=== PATIENT | male | born 1945 | race Caucasian/White ===

== ENCOUNTER 2020-06-11 07:48 | Emergency (ER) | payer MEDICARE, SELFPAY ==
[2020-06-11 07:52] VITALS: BP 151/73; PULSE 66; RESP 17; TEMP 36.7; O2SAT 96
--- NOTE | 2020-06-11 08:12 | ED.LOWEXIN ---
HPI - Extremity Injury (Lower) General Chief Complaint: Extremity Injury, Lower Stated Complaint: L leg pain Time Seen by Provider: 06/11/20 07:56 Source: patient Mode of arrival: ambulatory Limitations: no limitations History of Present Illness HPI Narrative: This patient is a 74 year old male who presents for evaluation of sciatica. PAtient states he developed pain to left buttock yesterday while walking in the store. He reports constant 2/10 dull ache to left buttock that intermittently intensifies . He reports this pain radiates down is left to his foot. HE reports tingling to his feet. He reports history of sciatica in the past that was similar and he was sent to physical therapy at that time. He was taking aspirin for his pain and he last took medication last night at 8 pm. Related Data Home Medications Medication Instructions Recorded Confirmed alprazolam 06/11/20 amlodipine 06/11/20 carvedilol 06/11/20 cyclobenzaprine mg 06/11/20 doxycycline hyclate 06/11/20 escitalopram oxalate mg 06/11/20 hydroxyzine HCl 06/11/20 indapamide mg 06/11/20 losartan 06/11/20 omeprazole 06/11/20 simvastatin mg 06/11/20 Allergies Allergy/AdvReac Type Severity Reaction Status Date / Time iodine Allergy Unknown Unknown Verified 06/11/20 07:56 Contrast Media Allergy Unknown Unknown Uncoded 06/11/20 07:56 Review of Systems Review of Systems: All systems reviewed & are unremarkable except as noted in HPI and below Constitutional: Constitutional: Denies chills and Denies fever(s) [facility] Past Medical History Medical History (Updated 06/11/20 @ 12:38 by Miya Stein MD) Afib CVA (cerebral vascular accident) Hypertension Surgical History Surgical History (Updated 06/11/20 @ 08:17 by Miya Stein MD) Hx of tonsillectomy Social History Social History (Updated 06/11/20 @ 08:17 by Miya Stein MD) Smoking status: Never smoker Gender identity (if verbalized by the patient): Male Exam Const: General: alert Orientation/consciousness: patient oriented x3 HENMT: Head: normocephalic and atraumatic Face and sinus: face symmetric Mouth: Yes oropharynx normal Eyes: Pupils: Equal, round and reactive pupils present EOM: EOMs intact bilaterally Resp: Effort & Inspection: normal respiratory effort, no retractions and no use of accessory muscles Auscultation: clear to auscultation bilaterally Cardio: Rate: regular rate Rhythm: regular rhythm Heart sounds: no murmurs GI: GI Palp: Yes Soft to palpation, No Tenderness to palpation present (GI), No Guarding due to palpation present (GI) and No Rigid due to palpation Back/Spine/Pelvis: Back: no CVA tenderness Pelvis: buttock tenderness on the left and sciatic notch tenderness on the left Skin: General skin exam: normal color Rashes: no rashes Neuro: General: patient oriented x3 and moves all extremities Extrem: General: no clubbing, cyanosis or edema and no pedal edema Other: strong bilateral pedal pulses palpable Course Reevaluation(s) Reevaluation #1: PAtient states he feels much better. He will follow up with PCP for further treatment. Date: 06/11/20 Time: 12:37 Vital Signs Vital signs: Vital Signs Temperature 98.0 F 06/11/20 07:52 Pulse Rate 66 06/11/20 07:52 Respiratory Rate 17 06/11/20 07:52 Blood Pressure 151/73 H 06/11/20 07:52 Pulse Oximetry 96 06/11/20 07:52 Temperature 98.0 F 06/11/20 07:52 Pulse Rate 86 06/11/20 12:56 Respiratory Rate 18 06/11/20 12:56 Blood Pressure 141/72 H 06/11/20 11:12 Pulse Oximetry 98 06/11/20 12:56 MDM - Extremity Injury (Lower) Lab Data Labs: Lab Results 06/11/20 Range/Units 08:34 Urine Color Yellow (Yellow) Urine Appearance Clear (Clear) Urine pH 5.0 (5.0-9.0) Ur Specific [place] 1.020 (1.001-1.035) Urine Protein Negative (Negative) mg/dL Urine Glucose (UA) Negative (Negative) mg/dL Urine Ketones Negative
[2020-06-11] MEDS: KETOROLAC 30 MG/ML VIAL (*BKC) IV PUSH (08:15)
[2020-06-11] MEDS: ONDANSETRON INJ 4 MG/2 ML VIAL IV PUSH (08:16)
[2020-06-11] MEDS: diazePAM 5 MG TABLET PO (08:16)
[2020-06-11] MEDS: methylPREDNISolone SOD SUCC 125 MG VIAL IV PUSH (08:16)
[2020-06-11 08:49] LABS: Add Urine Microscopic? NO; Appearance Urine Clear (Clear); Bilirubin Urine Negative (Negative); Blood Urine Negative (Negative); Color Urine Yellow (Yellow); Glucose Urine UA Negative (Negative); Ketones Urine Negative (Negative); Leukocyte Esterase Ur Negative LEU/UL (Negative); Nitrate Urine Negative (Negative); Protein Urine Negative (Negative); Urobilinogen Urine Negative mg/dL (<2.0)
[2020-06-11 11:12] VITALS: BP 141/72; PULSE 63; RESP 18; O2SAT 95
[2020-06-11 12:56] VITALS: PULSE 86; RESP 18; O2SAT 98
== END 2020-06-11 12:56 | disposition home or self-care (01) ==
PROVIDERS: Emergency Provider General Practice; PCP Internal Medicine
DX: M54.32 Sciatica, left side (principal); I48.91 Unspecified atrial fibrillation; Z86.73 Personal history of transient ischemic attack (TIA), and cerebral infarction without residual deficits; I10 Essential (primary) hypertension
CPT/HCPCS: 81003; 96374; 96375; 96376; 99284; A9270; J1170; J1885; J2405; J2930

== ENCOUNTER 2022-04-02 08:23 | Emergency (ER) | payer MEDICARE, SELFPAY ==
[2022-04-02 08:36] VITALS: BP 115/60; PULSE 66; RESP 16; TEMP 38.3; O2SAT 97
--- NOTE | 2022-04-02 08:57 | ED.URI ---
HPI - URI/Sore Throat General Chief Complaint: Upper Respiratory Infection Stated Complaint: Cough,Sneezing Time Seen by Provider: 04/02/22 08:57 Source: patient Mode of arrival: ambulatory Limitations: no limitations History of Present Illness HPI Narrative: 76-year-old male presents with complaint of nasal congestion, fatigue, body aches, cough, sneezing for 2 to 3 days. Reports taking [id number] DayQuil NyQuil cold and flu with little relief. States that he gets the same illness every spring and gets an antibiotic for him. He denies chest pain and shortness of breath. Reports today he woke up with redness and yellow drainage to left eye. Has cataract surgery coming up and does not want to be sick for it. Patient is afebrile. Patient took 2 home COVID test that were negative. All systems reviewed and negative except as noted above. Related Data Home Medications Medication Instructions Recorded Confirmed amlodipine 10 mg PO DAILY 06/11/20 04/02/22 carvedilol 25 mg PO DIRECTED 06/11/20 04/02/22 escitalopram oxalate 10 mg PO DAILY 06/11/20 04/02/22 indapamide 2.5 mg PO DAILY 06/11/20 04/02/22 losartan 100 mg PO DAILY 06/11/20 04/02/22 omeprazole 20 mg PO DAILY 06/11/20 04/02/22 simvastatin 40 mg PO DAILY 04/02/22 04/02/22 Allergies Allergy/AdvReac Type Severity Reaction Status Date / Time iodine Allergy Intermediate Hives Verified 04/02/22 08:44 Contrast Media Allergy Intermediate Hives Uncoded 04/02/22 08:44 Review of Systems Review of Systems: CONSTITUTIONAL: Denies fever, chills, or sweats. Reports fatigue EYES: Denies visual changes, redness, or discharge. ENT: Reports rhinorrhea, congestion. Denies sore throat and otalgia. CARDIOVASCULAR: Denies chest pain, palpitations, or edema. RESPIRATORY: Denies cough or dyspnea. GASTROINTESTINAL: Denies abdominal pain, nausea, vomiting, or diarrhea. GENITOURINARY: Denies dysuria or hematuria. SKIN: Denies rash or itching. MUSCULOSKELETAL: Denies back pain, joint pain. Reports myalgia. NEUROLOGIC: Denies headache, numbness, or weakness. PSYCHIATRIC: Denies anxiety or depression. All other systems reviewed are negative, except as documented in HPI. [facility] Past Medical History Medical History (Updated 04/02/22 @ 09:06 by Paulina Carver NP) Afib CVA (cerebral vascular accident) Hypertension Surgical History Surgical History (Updated 06/11/20 @ 08:17 by Miya Stein MD) Hx of tonsillectomy Social History Social History (Updated 06/11/20 @ 08:17 by Miya Stein MD) Smoking status: Never smoker Gender identity (if verbalized by the patient): Male Comments At time of signature, agree with nursing past medical, surgical, social and family history. There is no relevant family history pertinent to the presenting complaint. Exam Narrative: GENERAL: This is a well-nourished, well-developed patient, in no apparent distress. HEAD: normocephalic, atraumatic. EYES: PERRL. Sclera clear/white. Vision is grossly intact. EARS: External ears normal, auditory canals clear and without drainage, TMs normal without perforation. Hearing grossly intact. NOSE: External nose normal with clear nasal drainage, erythema to both nares. THROAT: Mucous membranes moist, erythema to posterior pharynx with clear postnasal drainage. NECK: Neck supple, non-tender without lymphadenopathy, masses or thyromegaly. CARDIOVASCULAR: Regular rate and rhythm without murmurs, gallops, or rubs. RESPIRATORY: Decreased lung sounds at bases but otherwise normal. Breath sounds equal bilaterally. No wheezes, rales, or rhonchi. SKIN: warm, Dry, intact with no suspicious lesions or rash, good texture and turgor. NEURO: awake, alert, and oriented to person, place and time. There were no obvious focal neurologic abnormalities. EXTREMITIES: Normal range of motion to all extremities. Course Course Level of Care: Express Care Visit Vital Signs Vital signs: Vital Signs Temp
== END 2022-04-02 09:10 | disposition home or self-care (01) ==
PROVIDERS: Emergency Provider Nurse Practitioner Family; PCP Internal Medicine
DX: J06.9 Acute upper respiratory infection, unspecified (principal); H10.32 Unspecified acute conjunctivitis, left eye; I48.91 Unspecified atrial fibrillation; I10 Essential (primary) hypertension; Z86.73 Personal history of transient ischemic attack (TIA), and cerebral infarction without residual deficits
CPT/HCPCS: 99213; G0463

== ENCOUNTER 2022-04-22 09:13 | Emergency (ER) | payer MEDICARE, SELFPAY ==
--- NOTE | ~2022-04-22 | XR_ITS ---
XR foot LT min 3V DATE: 04/22/2022 10:13 INDICATION: Left plantar foot pain for 2 days TECHNIQUE: 4 views COMPARISON: None FINDINGS: Mild plantar and more prominent posterior calcaneal enthesopathy. No associated erosive yusuf nge or periostitis. There is severe osteoarthritic change at the first metatarsophalangeal joint is osteoarthritis at the interphalangeal joint of the first digit. No fracture or dislocation, periosteal reaction or bone destruction. Os tibiale externum, normal variant. 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
[2022-04-22 09:25] VITALS: BP 119/73; PULSE 65; RESP 16; TEMP 37.4; O2SAT 99
--- NOTE | 2022-04-22 09:26 | ED.EXTPRO ---
HPI - Extremity Problem General Chief complaint: Extremity Injury, Lower Stated complaint: Bottom of left Foot Time Seen by Provider: 04/22/22 09:53 Source: patient and RN notes reviewed Mode of arrival: ambulatory Limitations: no limitations History of Present Illness HPI Narrative: 79-tumj-kxh-year-old male presents with concern for left foot pain. He denies any injury. He reports foot pain started after walking in the [place]. He reports he woke up in the middle the night with pain, and the pain progressed. Reports he has been using a cane due to the pain. Reports pain is 4/10 at rest and 8/10 with weightbearing and range of motion. Reports has been taking aspirin ibuprofen without relief. He denies open skin, lacerations, abrasions, bruising, swelling, redness, warmth MD Complaint: extremity pain Related Data Home Medications Medication Instructions Recorded Confirmed amlodipine 10 mg tablet 10 mg PO DAILY 06/11/20 04/02/22 carvedilol 25 mg tablet 25 mg PO DIRECTED 06/11/20 04/02/22 escitalopram oxalate 10 mg tablet 10 mg PO DAILY 06/11/20 04/02/22 indapamide 2.5 mg tablet 2.5 mg PO DAILY 06/11/20 04/02/22 losartan 100 mg tablet 100 mg PO DAILY 06/11/20 04/02/22 omeprazole 20 mg capsule,delayed 20 mg PO DAILY 06/11/20 04/02/22 release aspirin 04/22/22 04/22/22 rosuvastatin 40 mg tablet tablet 04/22/22 Allergies Allergy/AdvReac Type Severity Reaction Status Date / Time iodine Allergy Intermediate Hives Verified 04/02/22 08:44 Contrast Media Allergy Intermediate Hives Uncoded 04/02/22 08:44 Review of Systems Review of Systems: CONSTITUTIONAL: Denies malaise, chills, sweats, or fever. CARDIOVASCULAR: Denies chest pain, palpitations, or edema. RESPIRATORY: Denies cough or dyspnea. SKIN: Denies rash or itching, bruising, redness, swelling. MUSCULOSKELETAL: Reports left foot pain NEUROLOGIC: Denies numbness, weakness All systems reviewed & are unremarkable except as noted in HPI and below PMFSH Past Medical History Medical History (Updated 04/22/22 @ 10:26 by Marilyn Ferrer NP) Afib CVA (cerebral vascular accident) Hypertension Surgical History Surgical History (Updated 06/11/20 @ 08:17 by Miya Stein MD) Hx of tonsillectomy Social History Social History (Updated 06/11/20 @ 08:17 by Miya Stein MD) Smoking status: Never smoker Gender identity (if verbalized by the patient): Male Comments At time of signature, agree with nursing past medical, surgical, social and family history. There is no relevant family history pertinent to the presenting complaint Exam Narrative: GENERAL: Well-appearing, well-nourished, and in no acute distress. HEAD: Normocephalic, atraumatic. EYES: PERRLA, conjunctivae clear NECK: Supple. CHEST: Speaks in full sentences. No respiratory distress. HEART: Regular rate and rhythm. Normal and equal peripheral pulses. EXTREMITIES: Left foot, digits have normal strength and sensation, normal range of motion. No edema or ecchymosis. 5/5 strength with ankle and digit flexion and extension. Normal sensation with sensitivity to light touch and pain. Pedal carpal tenderness. No open wounds, no skin tenting, no devitalized tissue or atrophy, no trophic changes, no obvious deformity, alignment normal, nearby joints and structures intact. Distal pulses palpable and equal bilaterally, skin warm, dry, pink. Capillary refill less than 3 seconds. SKIN: Warm, dry, no rash. NEURO: Alert and oriented x3. PSYCH: Normal mood and affect Course Course Emergency Course: Patient is aware of diagnosis, understands and agrees to treatment plan. Anticipatory guidance given. Patient agrees to follow-up as directed and is aware of reasons to seek care at the emergency department. Portions of this record may have been created with voice recognition software Level of Care: Express Care Visit Vital Signs Vital signs: Vital Signs Temperature 99.3 F 04/22/22 09:25 Pulse Rat
== END 2022-04-22 10:52 | disposition home or self-care (01) ==
PROVIDERS: Emergency Provider Nurse Practitioner; PCP Internal Medicine
DX: M19.072 Primary osteoarthritis, left ankle and foot (principal); I10 Essential (primary) hypertension; I48.91 Unspecified atrial fibrillation; Z86.73 Personal history of transient ischemic attack (TIA), and cerebral infarction without residual deficits; Z79.82 Long term (current) use of aspirin
CPT/HCPCS: 73630; 99213; G0463

== ENCOUNTER 2022-05-13 08:05 | Emergency (ER) | payer MEDICARE, SELFPAY ==
[2022-05-13 08:19] VITALS: BP 138/72; PULSE 68; RESP 20; TEMP 37.1; O2SAT 96
[2022-05-13 08:29] VITALS: BP 138/72; PULSE 68; RESP 20; TEMP 37.1; O2SAT 96
--- NOTE | 2022-05-13 08:36 | ED.URI ---
HPI - URI/Sore Throat General Chief Complaint: Upper Respiratory Infection Stated Complaint: Covid Positive Time Seen by Provider: 05/13/22 08:25 Source: patient Mode of arrival: ambulatory Limitations: no limitations History of Present Illness HPI Narrative: 76 yo M presents with c/o cough, congestion, feeling warm, fatigued since last night. Reports he took covid test last night and today and both were positive. States his had covid last week. Pt is covid vaccinated. here to have antiviral prescribed. Ambulatory with steady gait. Denies CP and SOB. All systems reviewed and negative except as noted above. Related Data Home Medications Medication Instructions Recorded Confirmed amlodipine 10 mg tablet 10 mg PO DAILY 06/11/20 05/13/22 carvedilol 25 mg tablet 25 mg PO DIRECTED 06/11/20 05/13/22 escitalopram oxalate 10 mg tablet 10 mg PO DAILY 06/11/20 05/13/22 indapamide 2.5 mg tablet 2.5 mg PO DAILY 06/11/20 05/13/22 losartan 100 mg tablet 100 mg PO DAILY 06/11/20 05/13/22 omeprazole 20 mg capsule,delayed 20 mg PO DAILY 06/11/20 05/13/22 release aspirin 81 mg PO DAILY 04/22/22 05/13/22 rosuvastatin 40 mg tablet 40 mg PO DAILY 04/22/22 05/13/22 gabapentin 300 mg capsule 300 cap PO DAILY 05/13/22 05/13/22 ketorolac 0.5 % eye drops 1 drp ophthalmic (eye) DIRECTED 05/13/22 05/13/22 Allergies Allergy/AdvReac Type Severity Reaction Status Date / Time iodine Allergy Intermediate Hives Verified 05/13/22 08:21 Contrast Media Allergy Intermediate Hives Uncoded 05/13/22 08:21 Review of Systems Review of Systems: CONSTITUTIONAL: Denies fever, chills, or sweats. Reports fatigue. EYES: Denies visual changes, redness, or discharge. ENT: Reports rhinorrhea, congestion. Denies sore throat, or otalgia. CARDIOVASCULAR: Reports chest pain. Denies palpitations, or edema. RESPIRATORY: Denies cough or dyspnea. GASTROINTESTINAL: Denies abdominal pain, nausea, vomiting, or diarrhea. GENITOURINARY: Denies dysuria or hematuria. SKIN: Denies rash or itching. MUSCULOSKELETAL: Denies back pain, joint pain, or myalgia. NEUROLOGIC: Denies headache, numbness, or weakness. PSYCHIATRIC: Denies anxiety or depression. All other systems reviewed are negative, except as documented in HPI. [facility] Past Medical History Medical History (Updated 05/13/22 @ 08:31 by Paulina Carver NP) Afib CVA (cerebral vascular accident) Hypertension Surgical History Surgical History (Updated 06/11/20 @ 08:17 by Miya Stein MD) Hx of tonsillectomy Social History Social History (Updated 06/11/20 @ 08:17 by Miya Stein MD) Smoking status: Never smoker Gender identity (if verbalized by the patient): Male Comments At time of signature, agree with nursing past medical, surgical, social and family history. There is no relevant family history pertinent to the presenting complaint. Exam Narrative: GENERAL: This is a well-nourished, well-developed patient, in no apparent distress. HEAD: normocephalic, atraumatic. EYES: PERRL. Sclera clear/white. Vision is grossly intact. EARS: External ears normal, auditory canals clear and without drainage, TMs normal without perforation. Hearing grossly intact. NOSE: External nose normal with clear nasal drainage. No erythema or swelling to nares. THROAT: Mucous membranes moist, no erythema to posterior pharynx. Clear postnasal drainage noted. No exudates or tonsillar enlargement. NECK: Neck supple, non-tender without lymphadenopathy, masses or thyromegaly. CARDIOVASCULAR: Regular rate and rhythm without murmurs, gallops, or rubs. RESPIRATORY: Clear to auscultation. Breath sounds equal bilaterally. No wheezes, rales, or rhonchi. SKIN: warm, Dry, intact with no suspicious lesions or rash, good texture and turgor. NEURO: awake, alert, and oriented to person, place and time. There were no obvious focal neurologic abnormalities. EXTREMITIES: No joint tenderness, effusion, or edema noted. Co
== END 2022-05-13 08:32 | disposition home or self-care (01) ==
PROVIDERS: Emergency Provider Nurse Practitioner Family; PCP Internal Medicine
DX: U07.1 COVID-19 (principal); I48.91 Unspecified atrial fibrillation; Z86.73 Personal history of transient ischemic attack (TIA), and cerebral infarction without residual deficits; I10 Essential (primary) hypertension; Z79.82 Long term (current) use of aspirin
CPT/HCPCS: 99213; G0463

== ENCOUNTER 2023-03-05 10:42 | Emergency (ER) | payer MEDICARE, SELFPAY ==
[2023-03-05 10:51] VITALS: BP 117/62; PULSE 67; RESP 16; TEMP 37.1; O2SAT 96
--- NOTE | 2023-03-05 10:57 | ED.URI ---
HPI - URI/Sore Throat General Chief Complaint: Upper Respiratory Infection Stated Complaint: Cough/Headache/Sinus Source: patient and RN notes reviewed Mode of arrival: ambulatory Limitations: no limitations History of Present Illness HPI Narrative: 77-year-old male presented for complaint of productive cough for about 5 days. He also endorses sinus congestion and drainage, as well as chest congestion. The endorses the cough is productive, occasional wheezing, and coughing spells cause dizziness and difficulty sleeping. Tested Covid negative at home yesterday and the day before. Taking OTC meds for symptoms with some relief in the sinus congestion. Denies shortness of breath, nausea, vomiting, diarrhea, fevers or chills. MD elicited complaint: cough Related Data Home Medications Medication Instructions Recorded Confirmed amlodipine 10 mg tablet 10 mg PO DAILY 06/11/20 05/13/22 carvedilol 25 mg tablet 25 mg PO DIRECTED 06/11/20 05/13/22 escitalopram oxalate 10 mg tablet 10 mg PO DAILY 06/11/20 05/13/22 indapamide 2.5 mg tablet 2.5 mg PO DAILY 06/11/20 05/13/22 losartan 100 mg tablet 100 mg PO DAILY 06/11/20 05/13/22 omeprazole 20 mg capsule,delayed 20 mg PO DAILY 06/11/20 05/13/22 release aspirin 81 mg PO DAILY 04/22/22 05/13/22 gabapentin 300 mg capsule 300 cap PO DAILY 05/13/22 05/13/22 simvastatin 40 mg tablet mg 03/05/23 Allergies Allergy/AdvReac Type Severity Reaction Status Date / Time iodine Allergy Intermediate Hives Verified 03/05/23 10:50 Contrast Media Allergy Intermediate Hives Uncoded 03/05/23 10:50 Review of Systems Review of Systems: CONSTITUTIONAL: Denies malaise, chills, sweats, fever EYES: Denies visual changes, redness, or discharge ENT: Reports rhinorrhea, congestion, denies sinus pain, otalgia, sore throat CARDIOVASCULAR: Denies chest pain, palpitations, edema RESPIRATORY: Reports cough, post nasal drainage. Denies dyspnea GASTROINTESTINAL: Denies abdominal pain, nausea, vomiting, diarrhea SKIN: Denies rash or itching MUSCULOSKELETAL: Denies myalgia NEUROLOGIC: Denies headache PMFSH Past Medical History Medical History Afib CVA (cerebral vascular accident) Hypertension Surgical History Surgical History Hx of tonsillectomy Social History Social History Smoking status: Never smoker Gender identity (if verbalized by the patient): Male Exam Narrative: GENERAL: Mildly ill-appearing, nontoxic no acute distress. HEAD: Normocephalic EYES: PERRLA, conjunctivae clear ENT: Mucous membranes moist. TM pearly ballard with dull light reflex bilaterally; no tragal tenderness. Oropharynx erythematous without lesions or exudate, no drooling, no hoarseness, no trismus, uvula midline. No tripod positioning, muffled voice, soft palate or pharyngeal wall bulging NECK: Supple. No lymphadenopathy CHEST: Clear to auscultation, breath sounds equal. Moist nonproductive cough. Occasional audible wheezing. no respiratory distress, speaks in full sentences. HEART: Regular rate and rhythm. No murmur heard. SKIN: Warm, dry, no rash. NEURO: Alert and oriented x3. PSYCH: Normal mood and affect Course Course Emergency Course: Patient is aware of diagnosis, understands and agrees to treatment plan. Anticipatory guidance given. Patient agrees to follow-up as directed and is aware of reasons to seek care at the emergency department. Portions of this record may have been created with voice recognition software Level of Care: Express Care Visit Vital Signs Vital signs: Vital Signs Temperature 98.8 F 03/05/23 10:51 Pulse Rate 67 03/05/23 10:51 Respiratory Rate 16 03/05/23 10:51 Blood Pressure 117/62 03/05/23 10:51 Pulse Oximetry 96 03/05/23 10:51 Oxygen Delivery Room Air 03/05/23 10:51 Temperature 98.8 F
== END 2023-03-05 11:08 | disposition home or self-care (01) ==
PROVIDERS: Emergency Provider Nurse Practitioner Family; PCP Internal Medicine
DX: J40 Bronchitis, not specified as acute or chronic (principal); I48.91 Unspecified atrial fibrillation; I10 Essential (primary) hypertension; Z86.73 Personal history of transient ischemic attack (TIA), and cerebral infarction without residual deficits; Z79.82 Long term (current) use of aspirin
CPT/HCPCS: 99213; G0463

== ENCOUNTER 2023-12-27 08:17 | Emergency (ER) | payer MEDICARE, SELFPAY ==
--- NOTE | ~2023-12-27 | XR_ITS ---
EXAMINATION: XR foot RT min 3V DATE: 12/27/2023 08:54 INDICATION: Right foot swelling TECHNIQUE: Dorsoplantar, lateral, and 2 oblique views of the right foot were obtained. COMPARISON: None. FINDINGS: Bone alignment is normal. There is no fracture. 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 Moderate osteoarthritis is noted in multiple interphalangeal joints. Ther e is soft tissue swelling of the foot and distal leg. A plantar calcaneal enthesophyte is noted. IMPRESSION: 1. Soft tissue swelling without acute osseous abnormality. Reviewed, dictated and finalized at location F. OR UNDERWRITING ASSISTANT
--- NOTE | 2023-12-27 08:21 | ED.GENADULT ---
HPI - General Adult General Chief complaint: Extremity Problem,Nontraumatic Stated complaint: Right Foot Pain Time Seen by Provider: 12/27/23 08:21 78-year-old male patient [facility] with complaints right foot pain. Patient states the pain started Friday night. Patient states he was at [employer] on Friday and was on the treadmill and with ago stepped off and thinks that he might have stepped down from the treadmill wrong is slightly twisted his ankle but states really did not feel any pain at that time. Patient states that pain did not start until later on that evening and woke up with increased pain and swelling on Friday. Patient states the pain the swelling has gotten progressively worse throughout the week. Patient states he took some Helen aspirin for pain yesterday denies any other Tylenol ibuprofen for the pain at this time. Denies any numbness or tingling to the toes. Patient states that pain is increased to the point where he is having trouble walking on the right foot. Source: patient Mode of arrival: ambulatory Limitations: no limitations Related Data Home Medications Medication Instructions Recorded Confirmed amlodipine 10 mg tablet 10 mg PO DAILY 06/11/20 12/27/23 carvedilol 25 mg tablet 25 mg PO DIRECTED 06/11/20 12/27/23 escitalopram oxalate 10 mg tablet 10 mg PO DAILY 06/11/20 12/27/23 indapamide 2.5 mg tablet 2.5 mg PO DAILY 06/11/20 12/27/23 losartan 100 mg tablet 100 mg PO DAILY 06/11/20 12/27/23 omeprazole 20 mg capsule,delayed 20 mg PO DAILY 06/11/20 12/27/23 release aspirin 81 mg PO DAILY 04/22/22 12/27/23 gabapentin 300 mg capsule 300 cap PO DAILY 05/13/22 12/27/23 simvastatin 40 mg tablet 40 mg PO DAILY 03/05/23 12/27/23 Allergies Allergy/AdvReac Type Severity Reaction Status Date / Time iodine Allergy Intermediate Hives Verified 12/27/23 08:22 Contrast Media Allergy Intermediate Hives Uncoded 12/27/23 08:22 Review of Systems Review of Systems: CONSTITUTIONAL: Denies fever, chills, or sweats. EYES: Denies visual changes, redness, or discharge. ENT: Denies rhinorrhea, congestion, sore throat, or otalgia. CARDIOVASCULAR: Denies chest pain, palpitations, or edema. RESPIRATORY: Denies cough or dyspnea. GASTROINTESTINAL: Denies abdominal pain, nausea, vomiting, or diarrhea. GENITOURINARY: Denies dysuria or hematuria. SKIN: Denies rash or itching. MUSCULOSKELETAL: Denies back pain, joint pain, or myalgia. Positive right foot pain x4 days NEUROLOGIC: Denies headache, numbness, or weakness. PSYCHIATRIC: Denies anxiety or depression. PMFSH Past Medical History Medical History Afib CVA (cerebral vascular accident) Hypertension Surgical History Surgical History Hx of tonsillectomy Social History Social History Smoking status: Never smoker Gender identity (if verbalized by the patient): Male Comments At the time of my signature I agree with nursing past medical history, surgical, social, and family history. There is no relevant family history pertinent to the presenting complaint. Exam Narrative: GENERAL: Well-appearing, well-nourished, and in no acute distress. HEAD: Normocephalic, atraumatic. EYES: PERRLA and EOMI. ENT: Nares clear, no rhinorrhea or epistaxis. Mucous membranes moist. NECK: Supple. No lymphadenopathy CHEST: Clear to auscultation. No respiratory distress. HEART: Regular rate and rhythm. No murmur heard. Normal peripheral pulses. ABDOMEN: Soft, nontender, nondistended, normal active bowel sounds. EXTREMITIES: Patient able to bear weight and ambulate but has increased pain to the right foot. No surface trauma, no ecchymosis, mild erythema noted to the right foot compared to the left, no lesions, or ulcers or break in skin integrity. The R foot is without obvious a
[2023-12-27 08:29] VITALS: BP 133/71; PULSE 70; RESP 24; TEMP 37.1; O2SAT 98
== END 2023-12-27 09:50 | disposition home or self-care (01) ==
PROVIDERS: Emergency Provider Nurse Practitioner Family; PCP Internal Medicine
DX: S93.691A Other sprain of right foot, initial encounter (principal); X58.XXXA Exposure to other specified factors, initial encounter; I48.91 Unspecified atrial fibrillation; I10 Essential (primary) hypertension; Z86.73 Personal history of transient ischemic attack (TIA), and cerebral infarction without residual deficits
CPT/HCPCS: 73630; 99213; G0463

== ENCOUNTER 2024-01-12 01:41 | Emergency (ER) | payer MEDICARE, SELFPAY ==
--- NOTE | ~2024-01-12 | XR_ITS ---
AP view of the pelvis and lateral view of the left hip Clinical history: Pain Findings: No acute fracture or dislocation is seen. Osseous alignment is anatomic. The left hip joint is preserved. Soft tissues are unremarkable. Impression: No significant abnormality is seen. Reviewed, dictated and finalized at [facility]. STANT Impression: No significant abnormality is seen.
[2024-01-12 01:42] VITALS: BP 143/67; PULSE 61; RESP 20; TEMP 36.6; O2SAT 97
[2024-01-12] MEDS: CYCLOBENZAPRINE HCL 10 MG TABLET PO (03:45)
[2024-01-12] MEDS: HYDROcodone/acetaminophen (*CRX) 5-325 MG TABLET 1 TAB PO (03:45)
[2024-01-12 03:47] VITALS: BP 123/83; PULSE 72; RESP 15; O2SAT 96
--- NOTE | 2024-01-12 04:10 | ED.EXTPRO ---
HPI - Extremity Problem General Chief complaint: Extremity Problem,Nontraumatic Stated complaint: L hip pain, radiates down leg Time Seen by Provider: 01/12/24 02:54 History of Present Illness HPI Narrative: 78-year-old male presenting ED for evaluation of left hip pain. Patient had a recent injury to his right foot and had been using crutches and a walker over the last few weeks. Patient states the longer using the walker the worse his left-sided hip pain became. Patient describes pain that radiates from left buttock/left hip down to his knee. Patient denies any radiation the pain past the knee. Patient does have history of neuropathy but denies any worsening his numbness to his left foot. Related Data Home Medications Medication Instructions Recorded Confirmed amlodipine 10 mg tablet 10 mg PO DAILY 06/11/20 12/27/23 carvedilol 25 mg tablet 25 mg PO DIRECTED 06/11/20 12/27/23 escitalopram oxalate 10 mg tablet 10 mg PO DAILY 06/11/20 12/27/23 indapamide 2.5 mg tablet 2.5 mg PO DAILY 06/11/20 12/27/23 losartan 100 mg tablet 100 mg PO DAILY 06/11/20 12/27/23 omeprazole 20 mg capsule,delayed 20 mg PO DAILY 06/11/20 12/27/23 release aspirin 81 mg PO DAILY 04/22/22 12/27/23 gabapentin 300 mg capsule 300 cap PO DAILY 05/13/22 12/27/23 simvastatin 40 mg tablet 40 mg PO DAILY 03/05/23 12/27/23 Allergies Allergy/AdvReac Type Severity Reaction Status Date / Time iodine Allergy Intermediate Hives Verified 12/27/23 08:22 Contrast Media Allergy Intermediate Hives Uncoded 12/27/23 08:22 Review of Systems Review of Systems: All systems reviewed & are unremarkable except as noted in HPI and below PMFSH Past Medical History Medical History Afib CVA (cerebral vascular accident) Hypertension Surgical History Surgical History Hx of tonsillectomy Social History Social History Smoking status: Never smoker Gender identity (if verbalized by the patient): Male Exam Narrative: APPEARANCE: Well appearing, no pain, no distress, well-nourished. HEAD: normocephalic, atraumatic. EYES: PERRLA/EOMI, conjunctivae clear. NOSE: Normal no drainage EARS:TMS clear with good light reflex. THROAT: Pharynx clear, no exudate. NECK: Supple. No adenopathy, no masses. RESPIRATORY: Airway patent, respirations nonlabored. Clear to auscultation bilaterally, no rales, rhonchi, wheezing. CARDIOVASCULAR: Regular rate and rhythm without murmurs rubs or gallops. ABDOMINAL: Soft, nontender, nondistended, normal bowel sounds MUSCULOSKELETAL: tenderness to left buttock, negative straight leg test NEURO: Alert. Cranial nerves II through XII intact. grossly intact SKIN: Warm, dry. Normal Color Course Course Emergency Course: 78-year-old male presenting emergency department for evaluation of left leg pain. Patient's exam is consistent with sciatica. X-ray showed no acute fracture dislocation. Patient did not have significant improvement of his pain with his 1st dose of medications but did better control of his pain with the 2nd shot of Dilaudid. Patient was offered admission for pain control but patient states he prefers to go home. Patient will be provided a Medrol Dosepak and narcotic pain medication and Flexeril. Patient was also encouraged to return to emergency department if he felt his pain was uncontrolled or symptoms worsen. Vital Signs Vital signs: Vital Signs Temperature 97.9 F 01/12/24 01:42 Pulse Rate 61 01/12/24 01:42 Respiratory Rate 20 01/12/24 01:42 Blood Pressure 143/67 H 01/12/24 01:42 Pulse Oximetry 97 01/12/24 01:42 Oxygen Delivery Room Air 01/12/24 01:42 Temperature 97.9 F 01/12/24 01:42 Pulse Rate 59 L 01/12/24 06:04 Respiratory Rate 15 01/12/24 06:04 Blood Pressure 168/98 H 01/12/24 06:04 Pulse Oximetry 95 01/12/24 06:
[2024-01-12] MEDS: HYDROmorphone HCL INJ (*CRX) 1 MG/ML SYR IV PUSH ×2 (04:22→05:38)
[2024-01-12] MEDS: dexAMETHasone SOD PHOS INJ 10 MG/ML 1 ML VIAL IV PUSH (04:22)
[2024-01-12] MEDS: KETOROLAC 15 MG/ML VIAL (*BKC) IV PUSH (04:23)
[2024-01-12 06:04] VITALS: BP 168/98; PULSE 59; RESP 15; O2SAT 95
== END 2024-01-12 06:47 | disposition home or self-care (01) ==
PROVIDERS: Emergency Provider Emergency Medicine; PCP Internal Medicine
DX: M54.32 Sciatica, left side (principal); I48.91 Unspecified atrial fibrillation; I10 Essential (primary) hypertension; Z86.73 Personal history of transient ischemic attack (TIA), and cerebral infarction without residual deficits; Z79.82 Long term (current) use of aspirin
CPT/HCPCS: 73502; 96374; 96375; 96376; 99284; A9270; J1100; J1170; J1885

== ENCOUNTER 2024-02-21 08:07 | Emergency (ER) | payer MEDICARE, SELFPAY ==
--- NOTE | 2024-02-21 08:24 | ED.URI ---
HPI - URI/Sore Throat General Chief Complaint: Upper Respiratory Infection Stated Complaint: Sinus Time Seen by Provider: 02/21/24 08:24 Source: patient and RN notes reviewed Mode of arrival: ambulatory Limitations: no limitations History of Present Illness HPI Narrative: 78 y/o male presented for c/o cough worsening x5 days. Endorses mild sinus congestion and headache, body aches and subjective fever. Taking Mucinex. Denies sob, wheezing, n/v/d. Tested negative for Covid yesterday. Requesting flu testing. MD elicited complaint: cough Related Data Home Medications Medication Instructions Recorded Confirmed amlodipine 10 mg tablet 10 mg PO DAILY 06/11/20 02/21/24 carvedilol 25 mg tablet 25 mg PO DIRECTED 06/11/20 02/21/24 escitalopram oxalate 10 mg tablet 10 mg PO DAILY 06/11/20 02/21/24 indapamide 2.5 mg tablet 2.5 mg PO DAILY 06/11/20 02/21/24 losartan 100 mg tablet 100 mg PO DAILY 06/11/20 02/21/24 omeprazole 20 mg capsule,delayed 20 mg PO DAILY 06/11/20 02/21/24 release aspirin 81 mg PO DAILY 04/22/22 02/21/24 simvastatin 40 mg tablet 40 mg PO DAILY 03/05/23 02/21/24 Allergies Allergy/AdvReac Type Severity Reaction Status Date / Time iodine Allergy Intermediate Hives Verified 02/21/24 08:09 Contrast Media Allergy Intermediate Hives Uncoded 02/21/24 08:09 Review of Systems Review of Systems: CONSTITUTIONAL: Endorses malaise, chills, sweats, fever EYES: Denies visual changes, redness, or discharge ENT: Reports rhinorrhea, congestion, denies sinus pain, otalgia, sore throat CARDIOVASCULAR: Denies chest pain, palpitations, edema RESPIRATORY: Reports cough, post nasal drainage. Denies dyspnea GASTROINTESTINAL: Denies abdominal pain, nausea, vomiting, diarrhea SKIN: Denies rash or itching MUSCULOSKELETAL: Endorses myalgia PMFSH Past Medical History Medical History Afib CVA (cerebral vascular accident) Hypertension Surgical History Surgical History Hx of tonsillectomy Social History Social History Smoking status: Never smoker Gender identity (if verbalized by the patient): Male Exam Narrative: GENERAL: mildly Ill-appearing, nontoxic no acute distress. EYES: PERRLA, conjunctivae clear ENT: Mucous membranes moist. TMs pearly ballard with dull light reflex bilaterally; no tragal tenderness. Oropharynx erythematous without lesions or exudate, no drooling, no hoarseness, no trismus, uvula midline. CHEST: Clear to auscultation, breath sounds equal. No wheezing, rhonchi, rales, or stridor. No respiratory distress, speaks in full sentences. HEART: Regular rate and rhythm. No murmur heard. SKIN: Warm, dry, no rash. NEURO: Alert and oriented x3. PSYCH: Normal mood and affect Course Course Emergency Course: Patient is aware of diagnosis, understands and agrees to treatment plan. Anticipatory guidance given. Patient agrees to follow-up as directed and is aware of reasons to seek care at the emergency department. Portions of this record may have been created with voice recognition software Level of Care: Express Care Visit Vital Signs Vital signs: Vital Signs Temperature 98.2 F 02/21/24 08:28 Pulse Rate 76 02/21/24 08:28 Respiratory Rate 16 02/21/24 08:28 Blood Pressure 127/58 L 02/21/24 08:28 Pulse Oximetry 96 02/21/24 08:28 Oxygen Delivery Room Air 02/21/24 08:28 Temperature 98.2 F 02/21/24 08:28 Pulse Rate 76 02/21/24 08:28 Respiratory Rate 16 02/21/24 08:28 Blood Pressure 127/58 L 02/21/24 08:28 Pulse Oximetry 96 02/21/24 08:28 Oxygen Delivery Room Air 02/21/24 08:28 reviewed MDM - URI/Sore Throat MDM Narrative Medical decision making narrative: Neg flu. Discussed physical exam findings c/w bronchitis; Advised supportive measures and signs/symptoms to go to the ER. Pt is
[2024-02-21 08:28] VITALS: BP 127/58; PULSE 76; RESP 16; TEMP 36.8; O2SAT 96
== END 2024-02-21 08:55 | disposition home or self-care (01) ==
PROVIDERS: Emergency Provider Nurse Practitioner Family; PCP Internal Medicine
DX: J40 Bronchitis, not specified as acute or chronic (principal); I48.91 Unspecified atrial fibrillation; I10 Essential (primary) hypertension; Z86.73 Personal history of transient ischemic attack (TIA), and cerebral infarction without residual deficits; Z79.82 Long term (current) use of aspirin
CPT/HCPCS: 87804; 99213; G0463

== ENCOUNTER 2025-02-21 10:05 | Emergency (ER) | payer MEDICARE, SELFPAY ==
[2025-02-21 10:09] VITALS: BP 103/79; PULSE 62; RESP 16; TEMP 36.3; O2SAT 100
--- NOTE | 2025-02-21 10:36 | ED_ITS ---
HPI - URI/Sore Throat General Chief Complaint: Upper Respiratory Infection Stated Complaint: head/chest congestion, cough Time Seen by Provider: 02/21/25 10:36 Source: patient Mode of arrival: ambulatory Limitations: no limitations History of Present Illness HPI Narrative: 79-year-old male presents with complaint of URI symptoms. Patient states I get this every year. States that it starts as a cough, goes to by head with congestion and did to my chest. I come here every year around the same time for pills for a . No chest pain or shortness breath. Taking Tylenol at home. No other medications to treat symptoms. Afebrile. Patient reports headache, sinus pressure, congestion and chest. All systems reviewed and negative except as noted above. Related Data Home Medications ?Medication ?Instructions ?Recorded ?Confirmed ?Last Taken ?Type amlodipine 10 mg tablet 10 mg PO DAILY 06/11/20 02/21/24 Unknown History carvedilol 25 mg tablet 25 mg PO DIRECTED 06/11/20 02/21/24 Unknown History escitalopram oxalate 10 mg tablet 10 mg PO DAILY 06/11/20 02/21/24 Unknown History indapamide 2.5 mg tablet 2.5 mg PO DAILY 06/11/20 02/21/24 Unknown History losartan 100 mg tablet 100 mg PO DAILY 06/11/20 02/21/24 Unknown History omeprazole 20 mg capsule,delayed 20 mg PO DAILY 06/11/20 02/21/24 Unknown History release aspirin 81 mg PO DAILY 04/22/22 02/21/24 Unknown History simvastatin 40 mg tablet 40 mg PO DAILY 03/05/23 02/21/24 Unknown History Allergies Allergy/AdvReac Type Severity Reaction Status Date / Time iodine Allergy Intermediate Hives Verified 02/21/25 10:26 Contrast Media Allergy Intermediate Hives Uncoded 02/21/25 10:26 Review of Systems Review of Systems: CONSTITUTIONAL: Denies fever, chills, or sweats. reports fatigue. EYES: Denies visual changes, redness, or discharge. ENT: Reports rhinorrhea, congestion, sinus pressure. Denies sore throat, or otalgia. CARDIOVASCULAR: Denies chest pain, palpitations, or edema. RESPIRATORY: Reports cough, chest congestion. Denies dyspnea. GASTROINTESTINAL: Denies abdominal pain, nausea, vomiting, or diarrhea. GENITOURINARY: Denies dysuria or hematuria. SKIN: Denies rash or itching. MUSCULOSKELETAL: Denies back pain, joint pain, or myalgia. NEUROLOGIC: Denies headache, numbness, or weakness. PSYCHIATRIC: Denies anxiety or depression. All other systems reviewed are negative, except as documented in HPI. [facility] Past Medical History Medical History Afib CVA (cerebral vascular accident) Hypertension Surgical History Surgical History Hx of tonsillectomy Social History Social History Smoking status: Never smoker Gender identity (if verbalized by the patient): Male Comments At time of signature, agree with nursing past medical, surgical, social and family history. There is no relevant family history pertinent to the presenting complaint. Exam Narrative: GENERAL: This is a well-nourished, well-developed patient, in no apparent distress. HEAD: normocephalic, atraumatic. EYES: PERRL. Sclera clear/white. Vision is grossly intact. EARS: External ears normal, auditory canals clear and without drainage, TMs normal without perforation. Hearing grossly intact. NOSE: External nose normal with Purulent nasal drainage, erythema and swelling to bilateral nares THROAT: Mucous membranes moist, erythema with postnasal drainage NECK: Neck supple, non-tender without lymphadenopathy, masses or thyromegaly. CARDIOVASCULAR: Regular rate and rhythm without murmurs, gallops, or rubs. RESPIRATORY: Clear to auscultation. Breath sounds equal bilaterally. No wheezes, rales, or rhonchi. SKIN: warm, Dry, intact with no suspicious lesions or rash, good texture and turgor. NEURO: awake, alert, and oriented to person, place and time. There were no obvious focal neurologic abnormalities. EXTREMITIES: No joint tenderness, effusion, or edema noted. Course Course Level of Care: Express Care Visit Vital Signs Vital signs: Vital Signs Temperature 36.3 C L 02/21/25 10:09 Pulse Rate 62 02/21/25 10:09 Respiratory Rate 16 02/21/25 10:09 Blood Pressure 103/79 02/21/25 10:09 Pulse Oximetry 100 02/21/25 10:09 Oxygen Delivery Room Air 02/21/25 10:09 Temperature 36.3 C L 02/21/25 10:09 Pulse Rate 62 02/21/25 10:09 Respiratory Rate 16 02/21/25 10:09 Blood Pressure 103/79 02/21/25 10:09 Pulse Oximetry 100 02/21/25 10:09 Oxygen Delivery Room Air 02/21/25 10:09 reviewed MDM - URI/Sore Throat MDM Narrative Medical decision making narrative: will treat patient for bacterial sinusitis due to duration of symptoms and exam findings. Patient agrees with plan of care. Patient is alert, nontoxic. No respiratory distress. Please be advised this is a medical document. It is intended for [id number] communication. It is written in medical language and may contain unfamiliar abbreviations or verbiage. Medical documents are intended to carry relevant information, facts as evident, and the clinical opinion of the practitioner at the time of the encounter. This report may have been done utilizing a voice recognition system. Attempts have been made to correct errors. However, there may be uncorrected grammatical, spelling, and recognition errors present. The file time of this note does not necessarily represent the time of service. Discharge Plan Discharge Clinical Impression: Acute bacterial sinusitis Patient Disposition: Home, Self-Care Condition: Stable Instructions: Antibiotic Form, Sinusitis (ED) Additional Instructions: take medications as prescribed. Take Tylenol every 6-8 hours as needed for pain and fever. Drink at least 64 oz water a day. Place cool mist humidifier in bedroom where you sleep. Follow-up with your doctor if symptoms are not improving. Patient Language: Persian Prescriptions: New benzonatate 200 mg capsule 200 mg PO TID PRN (Reason: cough) Qty: 20 0RF amoxicillin-pot clavulanate 875-125 mg tablet 1 tablet PO Q12H 7 Days Qty: 14 0RF methylprednisolone [Medrol (Espinoza)] 4 mg tablets,dose pack See Rx Instructions PO .COMPLEX Qty: 21 0RF Rx Instructions: orally per package directions fluticasone propionate [Flonase Allergy Relief] 50 mcg/actuation spray,suspension 1 spray intranasal BID Qty: 16 0RF Rx Instructions: administer into each nostril No Action aspirin 81 mg PO DAILY simvastatin 40 mg tablet 40 mg PO DAILY carvedilol 25 mg tablet 25 mg PO DIRECTED indapamide 2.5 mg tablet 2.5 mg PO DAILY amlodipine 10 mg tablet 10 mg PO DAILY omeprazole 20 mg capsule,delayed release(DR/EC) 20 mg PO DAILY losartan 100 mg tablet 100 mg PO DAILY escitalopram oxalate 10 mg tablet 10 mg PO DAILY Follow-up/Referrals: Amanda,Nelson Yang MD [Primary Care Provider] - Time of Disposition: 10:48
== END 2025-02-21 10:58 | disposition home or self-care (01) ==
PROVIDERS: Emergency Provider Nurse Practitioner Family; PCP Internal Medicine
DX: J01.90 Acute sinusitis, unspecified (principal); I48.91 Unspecified atrial fibrillation; I10 Essential (primary) hypertension; Z86.73 Personal history of transient ischemic attack (TIA), and cerebral infarction without residual deficits; Z79.82 Long term (current) use of aspirin
CPT/HCPCS: 99213; G0463

== ENCOUNTER 2025-03-01 11:07 | Outpatient (CLI) | payer MEDICARE, SELFPAY ==
[2025-03-01 12:14] LABS: Hematocrit 42.3 % (42.0-52.0); Hemoglobin 13.4 g/dL (14.0-18.0); Mean Corpuscular HGB Conc 31.7 g/dl (32-36); Mean Corpuscular Hemoglobin 28.6 pg (26-34); Mean Corpuscular Volume 90.4 fl (80-100); Platelet Count Result 178 k/mm3 (150-375); Red Blood Count 4.68 M/mm3 (4.6-6.20); Red Cell Distribution Width 14.1 % (11.5-14.5); White Blood Count 8.6 K/mm3 (4.5-10.0)
[2025-03-01 12:14] LABS: Add Urine Microscopic? NO; Appearance Urine Clear (Clear); Bilirubin Urine Negative (Negative); Blood Urine Negative (Negative); Color Urine Yellow (Yellow); Glucose Urine UA Negative (Negative); Ketones Urine Negative (Negative); Leukocyte Esterase Ur Negative LEU/UL (Negative); Nitrate Urine Negative (Negative); Protein Urine Negative (Negative); Specific Grav Ur 1.015 (1.001-1.035); Urobilinogen Urine 0.2 mg/dL (<2.0)
[2025-03-01 12:21] LABS: Creatinine Urine 86.3 mg/dL
[2025-03-01 12:25] LABS: Total Protein Urine Random < 5 mg/dL; Ur Ttl Prot Creatinine Ratio < 0.06 mg/mg (0-0.20)
[2025-03-01 12:36] LABS: Complement C3 135 mg/dL (88-165)
[2025-03-01 12:37] LABS: Anion Gap 7 mmol/L (4-12); Blood Urea Nitrogen 34 mg/dL (9-20); Calcium 9.4 mg/dL (8.4-10.2); Carbon Dioxide 30 mmol/L (22-30); Chloride 99 mmol/L (98-107); Creatine Kinase 77 U/L (55-170); Estimated Glomerular Filt Rate 40; Glucose 125 mg/dL (65-110); Phosphorus 4.2 mg/dL (2.5-4.5); Potassium 4.3 mmol/L (3.4-5.0); Sodium 136 mmol/L (137-145)
--- OUTSIDE RECORDS SUMMARY | 2025-03-01 12:41 | XMS_ITS | Continuity of Care Document ---
Author Name [facility] Organization [facility] Care Team Providers Care Coin Machine Collector Name Role Phone [facility] Unavailable Unavailable Immunizations Combined list of available immunizations from the Department of Defense and Veterans Affairs facilities. Immunization Series Date Given Administered By Site Reaction Lot Number CVX Code Drug Media Services Coordinator Status Comments Source COVID-19 (PFIZER), MRNA, LNP-S, PF, 30 MCG/0.3 ML DOSE 2 2020 208 complet ed PFR; [id number]; 1 [facility] COVID-19 (PFIZER), MRNA, LNP-S, PF, 30 MCG/0.3 ML DOSE 1 2020 208 complet ed PFR; [id number]; 1 [facility]
--- OUTSIDE RECORDS SUMMARY | 2025-03-01 12:42 | XMS_ITS | Clinical Summary ---
Author Organization [facility] Facility Address [address] [address] Care Team Providers Care Cafe Assistant Name Role Phone Amanda Damon MD Primary Care Provider [phone] Social History Tobacco Use Types Packs/Day Years Used Date Smoking Tobacco: Never Assessed Sex and Gender Information Value Date Recorded Sex Assigned at Not on file Legal Sex Male 2:53 PM EDT Gender Identity Not on file Sexual Orientation Not on file Plan of Treatment Health Maintenance Due Date Last Done Comments Pneumococcal Vaccine: 65+ Ye ars (1 - PCV) 2012 Influenza Vaccine (Season Ended) 2025 Hepatitis B Vaccine Aged Out No longe r eligible based on patient's age to complete this topic Insurance MEDICARE [facility] Care Teams Cafe Assistant Relationship Specialty Start Date End Date Amanda Damno MD [address] [place] [id number] PCP - General Internal Medicine 08/26/24
[2025-03-01 12:58] LABS: Erythrocyte Sedimentation Rate 15 mm/hr (0-20)
[2025-03-01 13:06] LABS: Parathyroid Intact 47.1 pg/mL (14.5-75.2)
[2025-03-02 15:08] LABS: Complement Total CH50 >60 U/mL (31-60)
[2025-03-03 15:22] LABS: Kappa\\Lambda Light Chains 1.02 (0.26-1.65); Lambda Light Chain 20.6 mg/L (5.7-26.3)
== END 2025-03-01 11:08 | disposition home or self-care (01) ==
PROVIDERS: PCP Internal Medicine; Visit Provider Internal Medicine Nephrology
DX: I12.9 Hypertensive chronic kidney disease with stage 1 through stage 4 chronic kidney disease, or unspecified chronic kidney disease (principal); N18.32 Chronic kidney disease, stage 3b
CPT/HCPCS: 36415; 80069; 81003; 82550; 82570; 83883; 83970; 84156; 85027; 85652; 86038; 86160; 86162; 86334

== ENCOUNTER 2025-03-05 09:06 | Outpatient (CLI) | payer MEDICARE, SELFPAY ==
--- NOTE | ~2025-03-05 | US_ITS ---
Renal-Bladder ultrasound Clinical History: Chronic kidney disease Technique: Real-time sonographic imaging of the kidneys and urinary bladder was performed. Findings: The right kidney measures 10.1 cm in length and the left kidney measures 11.3 cm. There is no hydronephrosis or renal calculus identified. Renal cortical echogenicity is within normal limits. No renal mass lesion is identified. The urinary bladder is minimal distended at the time of this exam. Suggestion of diffuse wall thicken ing may be due to underdistention. Impression: Unremarkable ultrasound of the kidneys. Suggestion of urinary bladder wall thickening is most likely related to underdistention. Correlate cl inically for cystitis. Reviewed, dictated and finalized at location . Impression: Unremarkable ultrasound of the kidneys. Suggestion of urinary bladder wall thickening is most likely related to underdi stention. Correlate clinically for cystitis.
== END 2025-03-05 09:07 | disposition home or self-care (01) ==
LOC: MICIMG 09:07
PROVIDERS: PCP Internal Medicine; Visit Provider Internal Medicine Nephrology
DX: N18.32 Chronic kidney disease, stage 3b (principal)
CPT/HCPCS: 76775

== ENCOUNTER 2025-03-17 10:42 | Outpatient (CLI) | payer MEDICARE, SELFPAY ==
[2025-03-17 11:16] LABS: Hematocrit 37.4 % (42.0-52.0); Mean Corpuscular HGB Conc 32.1 g/dl (32-36); Mean Corpuscular Hemoglobin 28.6 pg (26-34); Mean Platelet Volume 10.1 fl (7.4-10.4); Platelet Count Result 152 k/mm3 (150-375); Red Cell Distribution Width 14.2 % (11.5-14.5); White Blood Count 5.5 K/mm3 (4.5-10.0)
[2025-03-17 11:32] LABS: Albumin Level 4.1 g/dL (3.5-5.1); Anion Gap 10 mmol/L (4-12); Blood Urea Nitrogen 20 mg/dL (9-20); Calcium 9.2 mg/dL (8.4-10.2); Carbon Dioxide 27 mmol/L (22-30); Chloride 101 mmol/L (98-107); Estimated Glomerular Filt Rate 48; Glucose 124 mg/dL (65-110); Phosphorus 3.5 mg/dL (2.5-4.5); Potassium 4.2 mmol/L (3.4-5.0); Sodium 138 mmol/L (137-145)
[2025-03-17 11:34] LABS: Rheumatoid Factor < 12.0 IU/ML (<12)
[2025-03-17 11:43] LABS: Parathyroid Intact 59.1 pg/mL (14.5-75.2)
[2025-03-17 11:46] LABS: Erythrocyte Sedimentation Rate 40 mm/hr (0-20)
[2025-03-17 11:49] LABS: Total Volume 24 Hour Urine 1650 ml
--- OUTSIDE RECORDS SUMMARY | 2025-03-17 12:07 | XMS_ITS | Clinical Summary ---
Author Organization [facility] Facility Address [address] [address] Care Team Providers Care Drainage Engineer Name Role Phone Amanda Damon MD Primary Care Provider [phone] Social History Tobacco Use Types Packs/Day Years Used Date Smoking Tobacco: Never Assessed Sex and Gender Information Value Date Recorded Sex Assigned at Not on file Legal Sex Male 2:53 PM EDT Gender Identity Not on file Sexual Orientation Not on file Plan of Treatment Health Maintenance Due Date Last Done Comments Pneumococcal Vaccine: 50+ Ye ars (1 - PCV) 1997 Influenza Vaccine (Season Ended) 2025 Hepatitis B Vaccine Aged Out No longe r eligible based on patient's age to complete this topic Insurance Medicare [facility] Care Teams Drainage Engineer Relationship Specialty Start Date End Date Amanda Damon MD [address] [place] [id number] PCP - General Internal Medicine 08/26/24
--- OUTSIDE RECORDS SUMMARY | 2025-03-17 12:07 | XMS_ITS | Continuity of Care Document ---
Author Name [facility] Organization [facility] Care Team Providers Care Certified Surgical Technician Name Role Phone [facility] Unavailable Unavailable Immunizations Combined list of available immunizations from the Department of Defense and Veterans Affairs facilities. Immunization Series Date Given Administered By Site Reaction Lot Number CVX Code Drug Certified Detention Deputy Status Comments Source COVID-19 (PFIZER), MRNA, LNP-S, PF, 30 MCG/0.3 ML DOSE 2 2020 208 complet ed PFR; [id number]; 1 [facility] COVID-19 (PFIZER), MRNA, LNP-S, PF, 30 MCG/0.3 ML DOSE 1 2020 208 complet ed PFR; [id number]; 1 [facility]
[2025-03-17 12:17] LABS: Creatinine Urine 103.4 mg/dL; Total Protein Urine Random 6 mg/dL; Ur Ttl Prot Creatinine Ratio 0.06 mg/mg (0-0.20)
[2025-03-17 12:38] LABS: Creatinine 24 Hour Urine 1.7 gm/24 (1.0-2.0); Creatinine Urine 105.4 mg/dL
[2025-03-17 17:16] LABS: Creatinine Urine 174.3 mg/dL; Total Protein Urine Random 24 mg/dL; Ur Ttl Prot Creatinine Ratio 0.14 mg/mg (0-0.20)
[2025-03-19 01:44] LABS: Creat 24 Hr 1.83 g/24 h (0.50-2.15); Pro/Creat Ratio 117 mg/g creat (<100); Pro/Creat Ratio mg/mg 0.117 (<0.100); Protein,total, 24 Hr Ur 215 mg/24 h (<150)
[2025-03-19 15:13] LABS: Anti Glomerular Basement Memb <1.0 AI
[2025-03-20 02:48] LABS: ANCA Screen NEGATIVE (NEGATIVE)
[2025-03-21 22:04] LABS: SM Antibody <1.0 NEG AI (<1.0 NEG); SM/RNP Antibody <1.0 NEG AI (<1.0 NEG)
[2025-03-22 14:58] LABS: Albumin 100 %
== END 2025-03-17 10:43 | disposition home or self-care (01) ==
PROVIDERS: PCP Internal Medicine; Visit Provider Internal Medicine Nephrology
DX: N18.32 Chronic kidney disease, stage 3b (principal); R76.0 Raised antibody titer; E11.8 Type 2 diabetes mellitus with unspecified complications
CPT/HCPCS: 36415; 80069; 81050; 82570; 82595; 83520; 83970; 84156; 84540; 85027; 85652; 86036; 86038; 86039; 86225; 86235; 86335; 86430

== ENCOUNTER 2025-09-19 09:17 | Outpatient (CLI) | payer MEDICARE, SELFPAY ==
--- NOTE | ~2025-09-19 | MR_ITS ---
EXAMINATION: MR lumbar spine wo con DATE: 09/19/2025 09:48 INDICATION: Low back pain radiating down the left leg. TECHNIQUE: Magnetic resonance imaging (MRI) of the lumbar spine was performed without intravenous contrast. Sequences included sagittal T2-weighted FSE, sagittal T2-weighted FS FSE, sagittal T1-weighted FSE, and axial T2-weighted FSE. COMPARISON: None FINDINGS: There is 6 degrees dextrocurvature of lumbar spine. There is 3 mm retrolisthesis of L2 on L3, L3 on L4, and L4 on L5. Vertebral body heights are normal. There are chronic bilateral L5 pars defects. There is mildly decreased disc height at L2-L3, moderately decreased disc height at L3-L4, and mildly decreased disc height at L4-L5. The distal spinal cord signal intensity is normal. The conus medullaris is at L1. The following disc levels are specifically discussed: L1-L2: The disc does not extend beyond the endplate margin. There is mild bilateral facet joint osteoarthritis. There is no neural foraminal stenosis. There is no central canal stenosis. L2-L3: The disc is bulging and has an annular fissure. There is mild bilateral facet joint osteoarthritis. There is mild bilateral neural foraminal stenosis. There is mild central canal stenosis. L3-L4: The disc is bulging and has an annular fissure. There is moderate bilateral facet joint osteoarthritis. There is mild right and moderate left neural foraminal stenosis. There is mild central canal stenosis. L4-L5: The disc is bulging and has an annular fissure. There is moderate bilateral facet joint osteoarthritis. There is mild bilateral neural foraminal stenosis. There is mild central canal stenosis. L5-S1: The disc is bulging and has an annular fissure. There is moderate bilateral facet joint osteoarthritis. There is mild bilateral neural foraminal stenosis. There is mild central canal stenosis. IMPRESSION: 1. Moderate lumbar spondylosis. 2. Chronic bilateral L5 pars defects without spondylolisthesis. Reviewed, dictated and finalized at location E.
== END 2025-09-19 09:18 | disposition home or self-care (01) ==
LOC: MICIMG 09:19
PROVIDERS: PCP Nurse Practitioner Family; Visit Provider Nurse Practitioner Family
DX: M47.816 Spondylosis without myelopathy or radiculopathy, lumbar region (principal); M43.06 Spondylolysis, lumbar region; M54.16 Radiculopathy, lumbar region
CPT/HCPCS: 72148